=== PATIENT | female | born 1965 | race Caucasian/White ===

== ENCOUNTER 2016-12-12 11:52 | Observation (INO) ==
[2016-12-12] MEDS ORDERED: Ipratropium/Albuterol Neb 3 ML IH ONE (12:00)
--- NOTE | 2016-12-12 12:19 | Emergency Department Note ---
Disposition Clinical Impression: Upper respiratory infection, COPD (chronic obstructive pulmonary disease) Disposition: Admitted As Inpatient Condition: Fair Referrals: NONE,PCP [Primary Care Provider] - Forms: ED Satisfaction Letter Time of Disposition: 13:49 (Darrius Monteiro [facility]) URI/Sore Throat HPI - General Chief Complaint: ED Upper Respiratory Infection Stated Complaint: cough, sob, pain to left lung Time Seen by Provider: 12/12/16 12:00 Source: patient Mode of arrival: ambulatory Limitations: no limitations Nursing Notes Reviewed: Yes Vital Signs Reviewed: Yes - History of Present Illness HPI Narrative: 51-year-old female who presents emergency room he was recently seen and treated for respiratory difficulty was placed on antibiotics and steroids at that time has gone home and is continued to show failure of outpatient therapy patient's having increasing shortness of breath states that she is wheezing states it hurts to breathe denies any blurred vision double vision loss vision she states that she has or cough no congestion denies any diarrhea melena hematochezia or hematemesis Pt Subjective Complaint: fever, cough Onset (ago): week(s) (1) Duration: constant Severity: mild Severity scale (1-10): 2 Improves with: nothing Worsens with: nothing Associated symptoms: Reports: fever, rhinorrhea, nasal congestion, cough, shortness of breath. Denies: chills, voice changes, myalgias, diaphoresis, headache, sore throat, stiff neck, chest pain, abdominal pain, nausea, vomiting , diarrhea, dysuria, rash, epistaxis, ear pain Treatments prior to arrival: antibiotics, other healthcare encounter for this problem - Related Data Previous Rx's Medication Instructions Recorded Albuterol Sulfate [Albuterol 2 puff IH Q4HR PRN #1 inhaler 12/05/16 Inhaler] Azithromycin [Zithromax] 250 mg PO DAILY #4 tablet 12/05/16 predniSONE [PredniSONE] 60 mg PO DAILY #5 tablet 12/05/16 Allergies Allergy/AdvReac Type Severity Reaction Status Date / Time No Known Allergies Allergy Verified 12/12/16 11:53 All systems ED: reviewed and negative except as stated. Review of Systems: As Per HPI Constitutional: Reports: fever, weakness. Denies: chills Eyes: Denies: eye pain, eye discharge ENT ED: Denies: ear pain, throat pain, congestion Cardiovascular: Denies: chest pain, palpitations Respiratory: Reports: cough, dyspnea, wheezes, sputum production Gastrointestinal: Denies: abdominal pain, nausea, hematemesis Genitourinary: Denies: urgency, dysuria, frequency Musculoskeletal: Denies: back pain, neck pain Integumentary: Denies: rash, abrasion, lesions Neurological: Denies: headache, weakness Psychiatric: Denies: anxiety, depression Endocrine: Denies: fatigue Hematological/Lymphatic: Denies: easy bleeding Allergic/Immunologic: Denies: facial swelling URI PMH - Past Medical History Medical history: Reports: COPD - Social History Smoking Status: Current every day smoker Alcohol use: Reports: none, occasionally Drug use: Reports: none Physical Exam - General Limitations: no limitations General appearance: alert, in no apparent distress, anxious, cachectic - Head Head exam: atraumatic, normocephalic, normal inspection - Eye Eye exam: Present: normal appearance, PERRL, EOMI - ENT ENT exam: normal exam, normal oropharynx, mucous membranes moist, normal external ear exam - Neck Neck exam: Present: normal inspection, full ROM, trachea midline - Chest Chest inspection: Present: normal inspection, symmetric chest wall rise - Respiratory Respiratory exam: Present: wheezes, accessory muscle use, prolonged expiratory phase - Cardiovascular Cardiovascular exam: Present: regular rate, normal rhythm, normal heart sounds - Abdominal Exam Abdominal exam: Present: soft, Non-Tender, normal bowel sounds. Absent: mass, pulsatile mass - Extremities Exam Extremities exam: Present: normal inspection, full ROM, normal capillary refill , pedal edema, joint swelling, calf tenderness. Absent: tenderness - Expanded Lower Extremity Exam Neurovascular/Tendon exam: Present: normal capillary refill, normal fine/light touch Gait: observed and normal - Back Exam Back exam: Present: normal inspection, full ROM. Absent: muscle spasm - Neurological Exam Neurological exam: Present: alert, oriented X3, CN II-XII intact, normal gait - Psychiatric Psychiatric exam: Present: normal affect, normal mood - Skin Skin exam: Present: warm, dry, intact, normal color Course Course Narrative: Patient seen and examined patient given aerosol treatment patient still very dyspneic post aerosol treatment and wheezing as result patient having right been on steroids in anabolic she will be admitted for observation 23 hours receive steroids transferred her to [facility] Vital Signs Temperature 97.3 F L 12/12/16 11:54 Pulse Rate 84 12/12/16 11:54 Respiratory Rate 20 12/12/16 11:54 Blood Pressure 126/85 12/12/16 11:54 O2 Sat by Pulse Oximetry 95 12/12/16 11:54 Temperature 97.3 F L 12/12/16 11:54 Pulse Rate 80 12/12/16 12:58 Respiratory Rate 20 12/12/16 12:58 Blood Pressure 121/80 12/12/16 12:58 O2 Sat by Pulse Oximetry 94 12/12/16 12:58 Oxygen Delivery Oxygen Delivery Room Air Upper Respiratory Infection - MDM Narrative Medical decision making narrative: copd - Differential Diagnosis Differential Diagnosis: Likely: upper respiratory infection, other viral infection, bronchitis, pharyngitis, pneumonia - Medical Records Medical records reviewed: Yes I reviewed the patient's medical records. - Radiology Data Radiology results reviewed: Yes I reviewed the patient's radiology results. ITS Impressions Chest X-Ray 12/12/16 12:30 IMPRESSION: No acute abnormality is seen in the chest D/ / Jimmy Oliver MD / Jimmy Oliver MD Interpreting Provider: Jimmy Oliver MD Critical Care Time Critical Care Time: No
[2016-12-12] MEDS ORDERED: methylPREDNISolone 125 MG/2 ML VIAL IVP ONE (13:13)
[2016-12-12] MEDS ORDERED: Levofloxacin 500 MG/100 ML 500 MG/100 ML BAG IVPB ONE (13:13)
[2016-12-12] MEDS ORDERED: Naloxone 0.4 MG/ML INJ IVP PRN (14:02)
[2016-12-12] MEDS ORDERED: Ondansetron ODT 4 MG TAB.RAPDIS SL PRN (14:02)
[2016-12-12] MEDS ORDERED: Acetaminophen 325 MG TABLET PO PRN (14:02)
[2016-12-12] MEDS ORDERED: 0.9 % Sodium Chloride 1,000 ML IVC SCH (14:02)
[2016-12-12] MEDS ORDERED: Nicotine 14 MG PATCH.TD24 TD SCH (14:02)
[2016-12-12] MEDS ORDERED: Ibuprofen 400 MG TABLET PO PRN (14:02)
[2016-12-12 14:27] LABS: Basophils # 0.1 K/mcL (0.0-0.2); Basophils % 0.9 %; Eosinophils # 0.5 K/mcL (0.0-0.6); Eosinophils % 4.2 %; Hematocrit 36.2 % (35.3-44.9); Hemoglobin 12.8 g/dL (11.5-15.4); Immature Granulocytes % 0.5 % (0-4); Lymphocytes # 1.1 K/mcL (0.6-4.6); Lymphocytes % 10.4 %; Mean Corpuscular HGB Conc 35.4 g/dL (31.6-35.5); Mean Corpuscular Hemoglobin 31.4 pg (28.0-33.3); Mean Corpuscular Volume 88.9 fL (83.0-100.0); Mean Platelet Volume 11.9 fL (9.4-12.4); Monocytes # 0.4 K/mcL (0.0-1.3); Monocytes % 3.4 %; Neutrophils # 8.8 K/mcL (1.6-8.9); Platelet Count 243 K/mcL (140-400); Red Blood Count 4.07 M/mcL (3.82-4.97); Red Cell Distribution Width 13.7 % (11.5-14.5); Segmented Neutrophils % 80.6 %
[2016-12-12 14:34] LABS: INR 1.1; Prothrombin Time 12.3 Seconds (9.4-12.1)
[2016-12-12 14:37] LABS: Activated Partial Thrombo Time 29.1 Seconds (26.0-36.0)
[2016-12-12 14:43] LABS: BUN/Creatinine Ratio 11 (6-26); Blood Urea Nitrogen 7 mg/dL (7-20); Calcium 8.9 mg/dL (8.6-10.8); Carbon Dioxide 19 mEq/L (19-29); Chloride 113 mEq/L (98-109); Glucose 123 mg/dL (70-99); Osmolality,Calculated 299 (280-300); Sodium 145 mEq/L (136-145); eGFR For African Americans > 60 (> 60); eGFR For Non-African Americans > 60 (> 60)
[2016-12-12] MEDS ORDERED: Ipratropium Neb 0.5 MG NEBULIZER IH SCH (16:00)
[2016-12-12] MEDS ORDERED: Albuterol 2.5 MG/3 ML NEBULIZER IH PRN (16:00)
--- NOTE | 2016-12-12 17:04 | Internal Med History&Physical ---
Date of Encounter: 12/12/16 Time of Encounter: 16:35 Assessment and Plan (1) COPD (chronic obstructive pulmonary disease) Current visit: Yes Status: Acute Suspect exacerbation of COPD. I will order a chest CT to further evaluate. Room air oximetry will be checked in a.m. on 6 minute walk Qualifiers: COPD type: unspecified COPD Qualified Code(s): J44.9 - Chronic obstructive pulmonary disease, unspecified (2) Hypokalemia Current visit: Yes Status: Acute We will give supplemental potassium and recheck labs in a.m. Internal Medicine - H&P: HPI Chief complaint: Dyspnea Admitted From: Home Plans for Post Hospital Care: Home History of present illness: Ms. Aguilera is a 51 year old female who came to emergency room stating she had not significant improved after receiving treatment for bronchitis, 2016 at a [facility] ER visit. She had been given prednisone, Zithromax, and albuterol inhaler. He states she had a cough with minimal productivity of thick white sputum. He was evaluated emergency room felt to have COPD and was admitted to [facility] for for ongoing care needs. Her respiratory history is significant for having smoked since age 18 up to 1 pack per day. She has not had PFTs and does not use home oxygen. She states her breathing has improved since her ER evaluation earlier today. Past Med Surg Social Fam HX - Past Medical History Medical history: COPD - Social History Smoking Status: Current every day smoker Smokeless Tobacco Status: No Alcohol use: none Drug use: none - Family History Sister Hx Family Cancer: Yes Internal Medicine - H&P: Meds Albuterol Sulfate [Albuterol Inhaler] 2 puff IH Q4HR PRN #1 inhaler 12/05/16 [Rx ] Azithromycin [Zithromax] 250 mg PO DAILY #4 tablet 12/05/16 [Rx] predniSONE [PredniSONE] 60 mg PO DAILY #5 tablet 12/05/16 [Rx] 3 Allergy/AdvReac Type Severity Reaction Status Date / Time No Known Allergies Allergy Verified 12/12/16 11:53 All Systems PM: A 10-system review of systems was performed and is negative for pertinent findings except as documented above in the HPI. Review of systems: Gen.: She states her weight has been stable the past few months Cardiovascular: Denies SD hypertension heart failure angina DVT or pulmonary embolus Respiratory: As per history of present illness GI: She denies disorders of her liver gallbladder or exocrine pancreas : She denies hematuria dysuria or kidney stones Neurologic: She denies large distribution strokes or seizures. Endocrine: She denies diabetes thyroid disease or hyperlipidemia Hematology/oncology: Denies blood disorders cancers or anemia. She states she had a sister who was also a smoker of lung cancer Psychiatric: She denies anxiety depression or other mental health issues Musk skeletal: She denies arthritis gout or other bone joint or muscle disorders. - Constitutional Vitals: Temp Pulse Resp BP Pulse Ox 98.6 F 92 16 112/76 96 12/12/16 15:01 12/12/16 15:01 12/12/16 15:01 12/12/16 15:01 12/12/16 15:01 Exam: Gen.: She is a well-developed well-nourished female who appears in no acute distress at present time. She appears minimally dyspneic. HEENT: Head is atraumatic and normocephalic. Eyes: EOMI. There is no scleral icterus. Mouth: Mucosa is moist. Neck: Supple and nontender. There is no thyromegaly or adenopathy noted. Heart: Regular without murmurs gallops or ectopics Lungs: No wheezes or crackles are heard. She has diminished breath sounds diffusely. Abdomen: Soft and nontender. No masses or guarding are noted. Extremities: There is no cyanosis edema or clubbing noted. Dorsalis pedis and posttibial pulses are trace palpable bilaterally. Neurologic: Mental status: She is talkative and a good historian. Cranial nerves: Smile is symmetric. Forehead wrinkles bilaterally. Tongue protrudes midline. EOMI. Motor: There is no pronator drift. Cerebellar: Fair to nose is intact bilaterally. Skin: Warm and dry Internal Med - H&P Results - Labs CBC & Chem 7: 12/12/16 14:16 12/12/16 14:16 Labs: Short CBC 12/12/16 Range/Units 14:16 WBC 11.0 (4.3-11.1) K/mcL Hgb 12.8 (11.5-15.4) g/dL Hct 36.2 (35.3-44.9) % Plt Count 243 (140-400) K/mcL Neutrophils # 8.8 (1.6-8.9) K/mcL [facility] 12/12/16 14:16 Sodium 145 Potassium 3.0 L Chloride 113 H Carbon Dioxide 19 BUN 7 Creatinine 0.65 Glucose 123 H Calcium 8.9
[2016-12-12] MEDS: Albuterol 2.5 MG/3 ML NEBULIZER IH PRN (17:05)
[2016-12-12] MEDS: methylPREDNISolone 125 MG/2 ML VIAL IVP SCH (18:29)
[2016-12-12] MEDS: 0.45 % Sodium Chloride w/KCl 20 MEQ/1,000 ML MLS IVC SCH (18:29)
[2016-12-13] MEDS: methylPREDNISolone 125 MG/2 ML VIAL IVP SCH ×2 (00:21→06:26)
[2016-12-13] MEDS: Albuterol 2.5 MG/3 ML NEBULIZER IH PRN ×2 (05:18→10:26)
[2016-12-13 05:50] LABS: Basophils % 0.2 %; Hematocrit 35.2 % (35.3-44.9); Hemoglobin 12.4 g/dL (11.5-15.4); Immature Granulocytes % 1.1 % (0-4); Lymphocytes # 0.7 K/mcL (0.6-4.6); Lymphocytes % 6.8 %; Mean Corpuscular HGB Conc 35.2 g/dL (31.6-35.5); Mean Corpuscular Hemoglobin 31.6 pg (28.0-33.3); Mean Corpuscular Volume 89.8 fL (83.0-100.0); Mean Platelet Volume 12.6 fL (9.4-12.4); Monocytes # 0.1 K/mcL (0.0-1.3); Monocytes % 0.6 %; Neutrophils # 9.9 K/mcL (1.6-8.9); Platelet Count 235 K/mcL (140-400); Red Blood Count 3.92 M/mcL (3.82-4.97); Segmented Neutrophils % 91.3 %
[2016-12-13 06:09] LABS: Alanine Aminotransferase 15 Units/L (0-55); Albumin 3.3 g/dL (3.5-5.0); Alkaline Phosphatase 55 Units/L (38-126); Aspartate Amino Transferase 10 Units/L (5-34); BUN/Creatinine Ratio 12 (6-26); Bilirubin,Total 0.2 mg/dL (0.2-1.2); Blood Urea Nitrogen 8 mg/dL (7-20); Calcium 8.9 mg/dL (8.6-10.8); Carbon Dioxide 18 mEq/L (19-29); Chloride 115 mEq/L (98-109); Globulin 3.2 g/dL (2.4-3.5); Glucose 176 mg/dL (70-99); Osmolality,Calculated 299 (280-300); Potassium 3.9 mEq/L (3.5-4.5); Sodium 143 mEq/L (136-145); Total Protein 6.5 g/dL (6.0-8.3); eGFR For African Americans > 60 (> 60); eGFR For Non-African Americans > 60 (> 60)
[2016-12-13] MEDS: 0.45 % Sodium Chloride w/KCl 20 MEQ/1,000 ML MLS IVC SCH (06:31)
[2016-12-13 11:39] VITALS: BP 119/74
[2016-12-13] MEDS ORDERED: Levofloxacin 500 MG/100 ML 500 MG/100 ML BAG IVPB SCH (13:00)
--- NOTE | 2016-12-13 13:18 | Discharge Summary ---
Date of Encounter: 12/13/16 Time of Encounter: 13:05 - Discharge Diagnosis (1) COPD (chronic obstructive pulmonary disease) Priority: Primary Status: Acute Qualifiers: COPD type: unspecified COPD Qualified Code(s): J44.9 - Chronic obstructive pulmonary disease, unspecified (2) Hypokalemia Priority: Secondary Status: Resolved - Discharge Medications Prescriptions: Lactobacillus [Culturelle] 1 each PO BID #6 cap.sprink Levofloxacin [Levaquin] 500 mg PO DAILY #3 tablet Home Medications: Albuterol Sulfate [Albuterol Inhaler] 2 puff IH Q4HR PRN #1 inhaler 12/05/16 [Rx ] Lactobacillus [Culturelle] 1 each PO BID #6 cap.sprink 12/13/16 [Rx] Levofloxacin [Levaquin] 500 mg PO DAILY #3 tablet 12/13/16 [Rx] Nicotine Patch [Nicoderm] 14 mg TD DAILY patch.td24 12/13/16 [Rx] Allergies/Adverse Reactions: 3 Allergy/AdvReac Type Severity Reaction Status Date / Time No Known Allergies Allergy Verified 12/12/16 11:53 Procedures/tests Complete & Pending: Procedures Performed prior 72 hours Category Date Time Status CT chest wo con [CT] Routine Cat Scan 12/12/16 17:14 Completed Date of admission: 12/12/16 13:48 Primary care physician: Kezia Stephenson [employer] - Patient Status Disposition: Home, Self-Care Condition: Fair Overall status at discharge: patient is progressing back to baseline - Discharge Instructions Follow Up With: NONE,PCP [Primary Care Provider] - 1 week - Diet and Activity Activity: resume usual activities as tolerated Diet: advance to your usual diet Hospital course: Ms. Aguilera is a 51 year old female who came to emergency room stating she had not significant improved after receiving treatment for bronchitis 12/05/2016 at a [facility] ER visit. She had been given prednisone, Zithromax, and albuterol inhaler. She states she had a cough with minimal productivity of thick white sputum. She was evaluated in emergency room felt to have COPD and was admitted to [facility] for for ongoing care needs. Initial orders were written by the emergency room physician. I saw her on December 12 and performed the history and physical. She was started on IV Levaquin. A chest CT was done to further evaluate. The CT scan showed no definite acute abnormality detected. There was moderate to severe emphysema in the upper lungs. There was atelectasis and/or scarring within the right middle lobe and lingula. I reviewed these results with her and encouraged her strongly to become a nonsmoker. A room air oximetry be checked prior to discharge on 6 minute walk. She felt stable for discharge home on December 13. She will follow with a PCP within one week in [place]. She will receive antibiotics and probiotic for 3 additional days. She was given supplemental potassium and hypokalemia resolved. Her PCP can monitor her labs. - Time Spent with Patient Total time spent providing and/or coordinating discharge services: - Constitutional Vitals: Temp Pulse Resp BP Pulse Ox 98.0 F 107 14 119/74 96 12/13/16 11:18 12/13/16 11:18 12/13/16 11:18 12/13/16 11:18 12/13/16 11:18
== END 2016-12-13 14:07 | disposition home or self-care (01) ==
LOC: EMEROOPIK 11:52 → INPPIK 11:52
PROVIDERS: ADMIT Internal Medicine; ATTEND Internal Medicine

== ENCOUNTER 2016-12-28 11:52 | Observation (INO) ==
[2016-12-28] MEDS ORDERED: Levofloxacin 500 MG/100 ML 500 MG/100 ML BAG IVPB ONE (11:55)
[2016-12-28] MEDS ORDERED: methylPREDNISolone 125 MG/2 ML VIAL IVP ONE (11:55)
[2016-12-28] MEDS ORDERED: Ipratropium/Albuterol Neb 3 ML IH ONE (11:55)
--- NOTE | 2016-12-28 11:56 | Emergency Department Note ---
Disposition Clinical Impression: COPD (chronic obstructive pulmonary disease) Disposition: Admitted As Inpatient Condition: Fair SOB HPI - General Chief Complaint: ED Shortness of Breath/Dyspnea Stated Complaint: cough/sob Time Seen by Provider: 12/28/16 12:00 Source: patient Mode of arrival: ambulatory Limitations: no limitations Nursing Notes Reviewed: Yes Vital Signs Reviewed: Yes - History of Present Illness Recently diagnosed with COPD presents to the emergency room with increasing shortness of breath cough and congestion and intermittent wheezing no apnea and no cyanosis patient states that she is not bringing up any phlegm patient tried using her inhaler at home with little relief patient states that she is barely able to walk around her house without significant dyspnea as result she was brought in by her family for evaluation for further care and management with possible need for rehospitalization Pt Subjective Complaint: shortness of breath, cough Onset (ago): hour(s) Context: other (recent hospitalization for copd new dx) Severity: severe Consistency/Duration: gradually worsening Improves with: nothing Worsens with: exertion, movement, inspiration Known history of: COPD Associated symptoms: Reports: wheezing. Denies: chest pain, pain with inspiration, fever, cough, sputum production, orthopnea, lower extremity pain, polyuria, polydipsia, parasthesias, palpitations, hemoptysis, diaphoresis, nausea/vomiting, syncope, abdominal pain, rash, sense of impending doom Treatment prior to arrival: bronchodilator - Related Data Previous Rx's Medication Instructions Recorded Nicotine Patch [Nicoderm] 14 mg TD DAILY patch.td24 12/13/16 Albuterol Sulfate [Albuterol 2 puff IH Q4HR PRN #1 inhaler 12/29/16 Inhaler] Doxycycline 100 mg PO BID #6 capsule 12/29/16 Lactobacillus [Culturelle] 1 each PO BID #6 cap.sprink 12/29/16 Allergies Allergy/AdvReac Type Severity Reaction Status Date / Time No Known Allergies Allergy Verified 12/22/16 04:51 All systems ED: reviewed and negative except as stated. Review of Systems: As Per HPI Constitutional: Reports: weakness. Denies: fever, chills Eyes: Denies: eye pain, eye discharge ENT ED: Denies: ear pain, throat pain, congestion Cardiovascular: Reports: dyspnea on exertion. Denies: chest pain, palpitations Respiratory: Reports: cough, dyspnea, wheezes Gastrointestinal: Denies: abdominal pain, nausea, vomiting Genitourinary: Denies: urgency, dysuria Musculoskeletal: Denies: back pain Integumentary: Denies: rash, abrasion Neurological: Denies: headache, weakness Psychiatric: Denies: anxiety, depression Endocrine: Denies: fatigue Hematological/Lymphatic: Denies: easy bleeding Allergic/Immunologic: Denies: facial swelling Past Medical History - Past Medical History Attestation: Yes The following information was validated with the patient. Source: patient, old records reviewed, nursing notes reviewed Medical history: Reports: COPD Surgical history: Reports: no surgical history Psychiatric history: Reports: no psych history - Social History Smoking Status: Current every day smoker Smokeless Tobacco Status: No Alcohol use: Reports: none Drug use: Reports: none Physical Exam - General Limitations: no limitations General appearance: alert, in no apparent distress, anxious - Head Head exam: atraumatic, normocephalic, normal inspection - Eye Eye exam: Present: normal appearance, PERRL, EOMI - ENT ENT exam: normal exam, normal oropharynx, mucous membranes moist, normal external ear exam - Neck Neck exam: Present: normal inspection, full ROM, trachea midline - Chest Chest inspection: Present: normal inspection, symmetric chest wall rise - Respiratory Respiratory exam: Present: wheezes, accessory muscle use, prolonged expiratory phase - Cardiovascular Cardiovascular exam: Present: tachycardia, normal heart sounds - Abdominal Exam Abdominal exam: Present: soft, Non-Tender, normal bowel sounds - Extremities Exam Extremities exam: Present: normal inspection, full ROM, normal capillary refill. Absent: tenderness, pedal edema, joint swelling, calf tenderness - Expanded Lower Extremity Exam Neurovascular/Tendon exam: Present: normal capillary refill, normal fine/light touch Gait: observed and normal - Back Exam Back exam: Present: normal inspection, full ROM. Absent: muscle spasm - Neurological Exam Neurological exam: Present: alert, oriented X3, CN II-XII intact, normal gait - Psychiatric Psychiatric exam: Present: normal affect, normal mood - Skin Skin exam: Present: warm, dry, intact, normal color Course Course Narrative: Seen examined patient had just finished an aerosol and vital signs were taking which resulted in her having tachycardia and tachypnea giving a false impression that she may meet criteria for sepsis though she is not having associated symptoms associated with this as result that the patient was not started on the sepsis pathway it appeared to be more secondary to respiratory etiology patient had a chest x-ray and labs upon completion spoke with Dr. Rizo agreed for admission question is how compliant the patient was using just an albuterol inhaler at home patient discharged MedSurg services of Dr. Rizo Vital Signs Temperature 97.8 F 12/28/16 11:55 Pulse Rate 112 12/28/16 11:55 Respiratory Rate 18 12/28/16 11:55 Blood Pressure 135/87 12/28/16 11:55 O2 Sat by Pulse Oximetry 96 12/28/16 11:55 Temperature 98.2 F 12/29/16 07:16 Pulse Rate 83 12/29/16 07:16 Respiratory Rate 14 12/29/16 10:31 Blood Pressure 105/64 12/29/16 07:16 O2 Sat by Pulse Oximetry 91 12/29/16 10:34 Oxygen Delivery Oxygen Delivery Room Air Shortness of Breath/Dyspnea - Differential Diagnosis Likely: acute exacerbation of chronic obstructive airways disease - Medical Records Medical records reviewed: Yes I reviewed the patient's medical records. - Lab Data Result diagrams: 12/29/16 05:10 12/29/16 05:10 Lab Results 12/28/16 12/28/16 12/28/16 Range/Units 12:09 12:09 12:09 WBC 10.6 (4.3-11.1) K/mcL RBC 4.39 (3.82-4.97) M/mcL Hgb 13.9 (11.5-15.4) g/dL Hct 39.9 (35.3-44.9) % MCV 90.9 (83.0-100.0) fL MCH 31.7 (28.0-33.3) pg MCHC 34.8 (31.6-35.5) g/dL RDW 13.4 (11.5-14.5) % Plt Count 237 (140-400) K/mcL MPV 11.5 (9.4-12.4) fL Immature Gran % 0.2 (0-4) % Seg Neutrophils % 54.3 % Lymphocytes % 19.5 % Monocytes % 5.3 % Eosinophils % 19.7 % Basophils % 1.0 % Neutrophils # 5.7 (1.6-8.9) K/mcL Lymphocytes # 2.1 (0.6-4.6) K/mcL Monocytes # 0.6 (0.0-1.3) K/mcL Eosinophils # 2.1 H (0.0-0.6) K/mcL Basophils # 0.1 (0.0-0.2) K/mcL PT 11.9 (9.4-12.1) Seconds INR 1.1 APTT 27.8 (26.0-36.0) Seconds Sodium 141 (136-145) mEq/L Potassium 4.1 (3.5-4.5) mEq/L Chloride 111 H (98-109) mEq/L Carbon Dioxide 21 (19-29) mEq/L BUN 9 (7-20) mg/dL Creatinine 0.65 (0.57-1.11) mg/dL Est GFR ( Amer) > 60 (> 60) Est GFR (Non-Af Amer) > 60 (> 60) BUN/Creatinine Ratio 14 (6-26) Glucose 91 (70-99) mg/dL Calculated Osmolality 290 (280-300) Calcium 9.1 (8.6-10.8) mg/dL
[2016-12-28 12:15] LABS: Hemoglobin 13.9 g/dL (11.5-15.4); Red Blood Count 4.39 M/mcL (3.82-4.97)
[2016-12-28 12:16] LABS: Basophils # 0.1 K/mcL (0.0-0.2); Eosinophils # 2.1 K/mcL (0.0-0.6); Eosinophils % 19.7 %; Hematocrit 39.9 % (35.3-44.9); Immature Granulocytes % 0.2 % (0-4); Lymphocytes # 2.1 K/mcL (0.6-4.6); Lymphocytes % 19.5 %; Mean Corpuscular HGB Conc 34.8 g/dL (31.6-35.5); Mean Corpuscular Hemoglobin 31.7 pg (28.0-33.3); Mean Corpuscular Volume 90.9 fL (83.0-100.0); Mean Platelet Volume 11.5 fL (9.4-12.4); Monocytes # 0.6 K/mcL (0.0-1.3); Monocytes % 5.3 %; Neutrophils # 5.7 K/mcL (1.6-8.9); Platelet Count 237 K/mcL (140-400); Red Cell Distribution Width 13.4 % (11.5-14.5); Segmented Neutrophils % 54.3 %
[2016-12-28 12:21] LABS: INR 1.1; Prothrombin Time 11.9 Seconds (9.4-12.1)
[2016-12-28 12:24] LABS: Activated Partial Thrombo Time 27.8 Seconds (26.0-36.0)
[2016-12-28 12:32] LABS: BUN/Creatinine Ratio 14 (6-26); Blood Urea Nitrogen 9 mg/dL (7-20); Calcium 9.1 mg/dL (8.6-10.8); Carbon Dioxide 21 mEq/L (19-29); Chloride 111 mEq/L (98-109); Glucose 91 mg/dL (70-99); Osmolality,Calculated 290 (280-300); Potassium 4.1 mEq/L (3.5-4.5); Sodium 141 mEq/L (136-145); eGFR For African Americans > 60 (> 60); eGFR For Non-African Americans > 60 (> 60)
[2016-12-28] MEDS ORDERED: Naloxone 0.4 MG/ML INJ IVP PRN (12:41)
[2016-12-28] MEDS ORDERED: Albuterol 2.5 MG/3 ML NEBULIZER IH PRN (12:41)
[2016-12-28] MEDS: Ipratropium/Albuterol Neb 3 ML IH SCH ×2 (17:24→22:09)
[2016-12-28] MEDS: methylPREDNISolone 125 MG/2 ML VIAL IVP SCH ×2 (17:56→23:51)
[2016-12-29] MEDS: Ipratropium/Albuterol Neb 3 ML IH SCH ×2 (05:40→10:31)
[2016-12-29 05:45] LABS: Basophils % 0.1 %; Hematocrit 38.4 % (35.3-44.9); Hemoglobin 13.3 g/dL (11.5-15.4); Immature Granulocytes % 0.5 % (0-4); Lymphocytes # 0.5 K/mcL (0.6-4.6); Lymphocytes % 4.6 %; Mean Corpuscular HGB Conc 34.6 g/dL (31.6-35.5); Mean Corpuscular Hemoglobin 31.7 pg (28.0-33.3); Mean Corpuscular Volume 91.6 fL (83.0-100.0); Mean Platelet Volume 11.9 fL (9.4-12.4); Monocytes # 0.1 K/mcL (0.0-1.3); Monocytes % 0.9 %; Neutrophils # 10.8 K/mcL (1.6-8.9); Platelet Count 238 K/mcL (140-400); Red Blood Count 4.19 M/mcL (3.82-4.97); Red Cell Distribution Width 13.4 % (11.5-14.5); Segmented Neutrophils % 93.9 %
[2016-12-29 06:01] LABS: BUN/Creatinine Ratio 17 (6-26); Blood Urea Nitrogen 12 mg/dL (7-20); Calcium 9.2 mg/dL (8.6-10.8); Carbon Dioxide 20 mEq/L (19-29); Chloride 112 mEq/L (98-109); Glucose 183 mg/dL (70-99); Osmolality,Calculated 296 (280-300); Potassium 4.1 mEq/L (3.5-4.5); Sodium 141 mEq/L (136-145); eGFR For African Americans > 60 (> 60); eGFR For Non-African Americans > 60 (> 60)
[2016-12-29] MEDS: methylPREDNISolone 125 MG/2 ML VIAL IVP SCH (06:59)
[2016-12-29 07:17] VITALS: BP 105/64
[2016-12-29] MEDS ORDERED: Nicotine 14 MG PATCH.TD24 TD SCH (09:00)
[2016-12-29] MEDS ORDERED: Levofloxacin 500 MG/100 ML 500 MG/100 ML BAG IVPB SCH (09:00)
--- NOTE | 2016-12-29 12:13 | Internal Med History&Physical ---
Date of Encounter: 12/29/16 Time of Encounter: 11:55 Assessment and Plan (1) Acute exacerbation of chronic obstructive airways disease Current visit: No Status: Acute She has been admitted to [facility] floor. She was started on scheduled DuoNeb's and Levaquin with steroids. Internal Medicine - H&P: HPI Chief complaint: Dyspnea Admitted From: Home Plans for Post Hospital Care: Home History of present illness: Ms. 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 When it did not improve after a few hours she came to emergency room. She was evaluated and felt to have exacerbation of COPD. She was admitted to [facility] for ongoing care needs. She has been hospitalized twice previously at [facility] in the past 3 weeks. Her respiratory history is significant for having smoked since age 18 up to 1 pack per day. She has not had PFTs and does not use home oxygen. She had a chest CT done during her November [facility] hospitalization that showed emphysema but no masses or lymphadenopathy etc. She was prescribed albuterol MDI at discharge in November but reports now she did not fill the prescription. She has continued to smoke cigarettes AGAINST MEDICAL ADVICE. She states she feels backed her baseline now and wishes to be discharged home. Past Med Surg Social Fam HX - Past Medical History Medical history: COPD Psychiatric history: no psych history - Past Surgical History Surgical History: no surgical history - Social History Smoking Status: Current every day smoker Packs per day: 0.5 Smokeless Tobacco Status: No Alcohol use: none Drug use: none - Family History Sister Hx Family Cancer: Yes Internal Medicine - H&P: Meds Albuterol Sulfate [Albuterol Inhaler] 2 puff IH Q4HR PRN #1 inhaler 12/05/16 [Rx ] Nicotine Patch [Nicoderm] 14 mg TD DAILY patch.[email or web address] 12/13/16 [Rx] 3 Allergy/AdvReac Type Severity Reaction Status Date / Time No Known Allergies Allergy Verified 12/22/16 04:51 All Systems PM: A 10-system review of systems was performed and is negative for pertinent findings except as documented above in the HPI. Review of systems: Review of systems from her [facility] hospitalization last week were reviewed and revised as below. Gen.: She states her weight has been stable the past few months Cardiovascular: She denies [place] hypertension heart failure angina DVT or pulmonary embolus. Respiratory: As per history of present illness GI: She denies disorders of her liver gallbladder or exocrine pancreas : She denies hematuria dysuria or kidney stones Neurologic: She denies large distribution strokes or seizures. Endocrine: She denies diabetes thyroid disease or hyperlipidemia. Hematology/oncology: Denies blood disorders cancers or anemia. She states she had a sister who was also a smoker who of lung cancer. Psychiatric: She denies anxiety depression or other mental health issues Musk skeletal: She denies arthritis gout or other bone joint or muscle disorders. - Constitutional Vitals: Temp Pulse Resp BP Pulse Ox 98.2 F 83 16 105/64 91 12/29/16 07:16 12/29/16 07:16 12/29/16 07:16 12/29/16 07:16 12/29/16 10:34 Exam: Gen.: She is a well developed well-nourished female sitting on the side of the bed who appears in no acute distress HEENT: Head is atraumatic and normocephalic. Eyes: EOMI. There is no scleral icterus. Mouth: Mucosa is moist. Neck: Supple and nontender. There is no thyromegaly or adenopathy noted. Heart: Regular without murmurs gallops or ectopics. Lungs: No wheezes or crackles are heard. Abdomen: Soft and nontender. No masses or guarding noted. Extremities: There is no cyanosis edema or clubbing noted. Dorsalis pedis and posttibial pulses are trace palpable bilaterally. Her feet are warm to touch. Neurologic: Mental status: She is talkative and a good historian. Cranial nerves: Smile is symmetric. Forehead wrinkles bilaterally. Tongue protrudes midline. EOMI. Motor: There is no pronator drift. Cerebellar: Finger to nose is intact bilaterally. Skin: Warm and dry Internal Med - H&P Results - Labs CBC & Chem 7: 12/29/16 05:10 12/29/16 05:10 Labs: Short CBC 12/29/16 Range/Units 05:10 WBC 11.5 H (4.3-11.1) K/mcL Hgb 13.3 (11.5-15.4) g/dL Hct 38.4 (35.3-44.9) % Plt Count 238 (140-400) K/mcL Neutrophils # 10.8 H (1.6-8.9) K/mcL BMP 12/29/16 05:10 Sodium 141 Potassium 4.1 Chloride 112 H Carbon Dioxide 20 BUN 12 Creatinine 0.71 Glucose 183 H Calcium 9.2
--- NOTE | 2016-12-29 12:22 | Discharge Summary ---
Date of Encounter: 12/29/16 Time of Encounter: 11:55 - Discharge Diagnosis (1) Acute exacerbation of chronic obstructive airways disease Priority: Primary Status: Acute - Discharge Medications Prescriptions: Albuterol Sulfate [Albuterol Inhaler] 2 puff IH Q4HR PRN #1 inhaler PRN Reason: Shortness Of Breath Doxycycline 100 mg PO BID #6 capsule Lactobacillus [Culturelle] 1 each PO BID #6 cap.sprink Home Medications: Nicotine Patch [Nicoderm] 14 mg TD DAILY patch.td24 12/13/16 [Rx] Albuterol Sulfate [Albuterol Inhaler] 2 puff IH Q4HR PRN #1 inhaler 12/29/16 [Rx ] Doxycycline 100 mg PO BID #6 capsule 12/29/16 [Rx] Lactobacillus [Culturelle] 1 each PO BID #6 cap.sprink 12/29/16 [Rx] Allergies/Adverse Reactions: 3 Allergy/AdvReac Type Severity Reaction Status Date / Time No Known Allergies Allergy Verified 12/22/16 04:51 Date of admission: 12/28/16 12:37 Primary care physician: Kezia Stephenson CNP - Patient Status Disposition: Home, Self-Care Condition: Fair Functional capacity at discharge: independent ambulation Overall status at discharge: patient is progressing back to baseline - Discharge Instructions Follow Up With: NONE,PCP [Primary Care Provider] - 1 week - Diet and Activity Activity: resume usual activities as tolerated Diet: advance to your usual diet Hospital course: Ms. 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 When it did not improve after a few hours she came to emergency room. She was evaluated and felt to have exacerbation of COPD. She was admitted to [facility] floor for ongoing care needs. Initial orders were written by the emergency room physician. I saw her on December 29 performed the history and physical and discharge. She was started on Levaquin and steroids through emergency room. When I saw her she felt back to her baseline. She had 6 minute walk with saturation dropping to 89% which did not qualify her for home oxygen. I counseled her strongly to discontinue smoking. She will be discharged home with 3 day prescription of doxycycline Lactobacillus. She will follow with her PCP Kezia Stephenson CNP tomorrow as scheduled. - Time Spent with Patient Total time spent providing and/or coordinating discharge services: - Constitutional Vitals: Temp Pulse Resp BP Pulse Ox 98.2 F 83 16 105/64 91 12/29/16 07:16 12/29/16 07:16 12/29/16 07:16 12/29/16 07:16 12/29/16 10:34
== END 2016-12-29 13:20 | disposition home or self-care (01) ==
LOC: EMEROOPIK 11:52 → INPPIK 11:52
PROVIDERS: ADMIT Internal Medicine; ATTEND Internal Medicine